=== PATIENT | male | born 1975 | race Caucasian/White ===

== ENCOUNTER 2020-09-17 01:00 | Emergency (ER) | payer MEDICAID ==
[~2020-09-17] VITALS: Ht 170.2 cm; Wt 80.2 kg
[2020-09-17 01:07] VITALS: BP 144/88
[2020-09-17] MEDS ORDERED: OLANZAPINE 5 MG TABLET ONE (01:32)
--- NOTE | 2020-09-17 01:39 | NUR ---
pt presents to the ed with migraine. pt states he feels electricity. pt resting on gureny and placed on continuous monitoring.
[2020-09-17 01:57] LABS: BASOPHILS % (AUTO) 1 % (0-1); EOSINOPHILS % (AUTO) 5 % (1-7); LYMPHOCYTES % (AUTO) 35 % (22-44); MEAN CORPUSCULAR HEMOGLOBIN 31.9 pg (27.5-34.5); MEAN CORPUSCULAR HGB CONC 34.7 g/dL (33.2-36.2); MEAN PLATELET VOLUME 8.5 fL (7.4-10.4); MONOCYTES % (AUTO) 11 % (2-9); NEUTROPHILS % (AUTO) 48 % (42-75); PLATELET COUNT 217 x10^3/uL (130-400); RED BLOOD COUNT 4.09 x10^6/uL (4.38-5.82)
[2020-09-17 02:09] LABS: ALANINE AMINOTRANSFERASE 18 U/L (12-78); ALBUMIN 3.5 g/dL (3.4-5.0); ANION GAP 8 mmol/L (5-15); CALCIUM 8.1 mg/dL (8.5-10.1); CHLORIDE 108 mmol/L (98-107); CREATININE 0.95 mg/dL (0.7-1.3)
--- NOTE | 2020-09-17 02:15 | NUR ---
PT ABLE TO GIVE UA SAMPLE, UA TAKEN TO LAB
[2020-09-17 02:20] LABS: ALKALINE PHOSPHATASE 102 U/L (45-117); BILIRUBIN,TOTAL 0.1 mg/dL (0.2-1.0); SALICYLATE LEVEL < 1.7 mg/dL (2.8-20.0); TOTAL PROTEIN 6.7 g/dL (6.4-8.2)
--- NOTE | 2020-09-17 02:27 | NUR ---
PT RESTING ON GURNEY, DENIES NEEDS AT THIS TIME.
[2020-09-17 02:40] LABS: AMPHETAMINE SCREEN, URINE Negative (Negative); BARBITURATE SCREEN, URINE Negative (Negative); BENZODIAZEPINE SCREEN, URINE Negative (Negative); CANNABINOID SCREEN, URINE Negative (Negative); COCAINE SCREEN, URINE Negative (Negative); METHADONE SCREEN, URINE Negative (Negative); OPIATE SCREEN, URINE Negative (Negative)
[2020-09-17 02:50] LABS: FREE T4 (FREE THYROXINE) 0.94 ng/dL (0.76-1.46)
--- NOTE | 2020-09-17 03:00 | NUR ---
pt resting on gurney, denies needs at this time.
--- NOTE | 2020-09-17 04:00 | NUR ---
pt resting on gurney, denies needs at this time.
--- NOTE | 2020-09-17 05:40 | NUR ---
erp at bedside, denies needs at this time.
--- NOTE | 2020-09-17 05:55 | NUR ---
Patient given discharge instructions and they have confirmed that they understand the instructions. Patient ambulatory with steady gait. Patient refused vitals before leaving.
[2020-09-17] MEDS ORDERED: OLANZAPINE ODT 10MG PO SCH (09:00)
== END 2020-09-17 05:57 | disposition home or self-care (01) ==
LOC: ED 05:35
DX: R51.9 Headache, unspecified (principal); F22 Delusional disorders
CPT/HCPCS: 36415; 80053; 80299; 80307; 80320; 80329; 84439; 84443; 85025; 99283; G0480